=== PATIENT | female | born 1970 ===

== ENCOUNTER 2022-03-15 18:11 | Emergency (ER) | payer BC, SELFPAY ==
[2022-03-15 18:17] VITALS: BP 134/82; PULSE 91; RESP 16; TEMP 36.4; O2SAT 91; BMI 39.9
--- NOTE | 2022-03-15 19:03 | ED.NURSE ---
Compliance Investigator attempted to collected Covid [employer] test that was ordered. Pt stated she was uncomfortable with an [employer] swab collection. Compliance Investigator explained procedure to pt to provide reassurance. Before the pt could respond, pt's male visitor then stated that the pt was refusing the [employer] swab collection. Procedure again explained to pt and pt's visitor. Pt's visitor argumentative with underwriter mortgage loan, stating that pt should just be able to spit on the [employer] swab for a sample collection. Compliance Investigator explained again that there was a procedure for sample collection and the pt could not spit on the [employer] swab for collection. Compliance Investigator offered an OP swab as an alternative and explained the procedure for OP swab collection. Pt's visitor argumentative about this as well, stating pt should just be able to spit on OP swab for collection and stating that mucus all comes from the same area, you know that. Compliance Investigator explained to pt and visitor that the detox treatment they were seeking required a negative covid test for admission to the facility. Pt's visitor still stating that the pt declines the swab collection. Compliance Investigator stepped out of the room at this point as pt's visitor was continuing to escalate the conversation into an argument. notified of the situation. entered room and spoke with pt and visitor as well. explained the requirements for sample collection of covid swabs several times, and informed pt and visitor of the detox admission requiring a negative covid test. Pt and visitor still declined covid test and requested some time to consider.
--- NOTE | 2022-03-15 19:17 | ED.NURSE ---
Pt and visitor departing ER. Drying Frame Operator offered DC paperwork to pt and visitor, DC paperwork declined by both pt and visitor. Pt and visitor then departed ER.
--- NOTE | 2022-03-15 19:21 | ED.ALCOHOL ---
HPI - Alcohol General Chief Complaint: Alcohol/Intoxication Stated Complaint: Alcohol Withdrawal Time Seen by Provider: 03/15/22 18:11 Source: patient and family Mode of arrival: ambulatory Limitations: no limitations History of Present Illness HPI narrative: 51-year-old female with known history of alcoholism presents the emergency department requesting alcohol treatment. She reports that she has been through detox once before about 3 or 4 years ago in [place]. She says that she is starting to feel like she is going to withdrawal, she feels nauseated, anxious. She reports that she is currently drinking about 1 L of vodka per day. This is a rough estimate as it does tend to be sporadic and go in spurts. She has been on a drinking better for the last 14 days her partner reports. She has no history of DTs. She does report that she had a seizure once to tramadol but that she was actually not drinking at the time and had been sober for quite some time when she had that seizure has not had any other similar episodes. She is willing to go to detox today. She has been sober for 4-5 years at most in the past. 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 Eyes any recent fever illness, no cardiac or pulmonary symptoms. She did just start working with a therapist to help get to the root of her depression anxiety that covers her drinking. Last drink was about 3 hours ago. Past medical history is notable for liver and kidney dysfunction secondary to alcoholism. Socially she drinks about a L of vodka per day we estimate also some wine sporadically on does use marijuana edibles at times as well. Prescription medications none though she does report she has some [place] around for on an old shoulder fracture. He has an allergy to tramadol which caused a seizure. Related Data Allergies Allergy/AdvReac Type Severity Reaction Status Date / Time tramadol Allergy Verified 03/15/22 18:17 Review of Systems Status of ROS Reports: 10 or more systems reviewed and unremarkable except as noted in History and below [facility] Social History Smoking Status: Never smoker Do you use any of these nicotine containing products: None Second hand tobacco smoke exposure: No How often do you have a drink containing alcohol: 4 or more times a week How many standard drinks containing alcohol do you have on a typical day: 5 or 6 How often do you have six or more drinks on one occasion: Daily or almost daily AUDIT-C Alcohol total score: 10 Non-prescribed substance use: denies use service: No Exam Const: Vital Signs, click to edit/add: Vital Signs - 24 hr 03/15/22 18:17 Temperature 97.5 F L Pulse Rate [Pulse Oximeter] 91 Respiratory Rate 16 Blood Pressure [Le ft Upper Arm] 134/82 Pulse Oximetry 91 Oxygen Delivery Me thod Room Air Documenting provider has reviewed patient's vital signs: yes Common normals: no apparent distress Other: Both patient and her partner are irritable. HENMT: Common normals: normocephalic Head and scalp: normocephalic Mouth: oral and palatal mucosa normal Throat: posterior oropharynx normal Eye: Common normals: conjunctivae normal and no scleral icterus Conjunctiva: conjunctiva(e) normal Neck & C-Spine: Common normals: no lymphadenopathy Resp: Common normals: normal respiratory effort and clear to auscultation bilaterally Effort & inspection: able to speak in complete sentences Auscultation: clear to auscultation bilaterally Cardio: Common normals: regular rate, regular rhythm and peripheral pulses 2+ throughout Rate: regular rate Rhythm: regular rhythm Peripheral pulses: pulses 2+ throughout GI: Other: 2 cm hepatomegaly with moderate ascites. No obvious masses Extremity: Common normals: no pedal edema Neuro: Speech: speech normal Motor exam: no tremor noted, no asterixis and no movement abnormalities noted Psych: Other: Irritable with fair judgment. Insight seems good. Thought process logical with no psychosis. Does not seem severely intoxicated. Skin: Common normals: no rashes or lesions noted General skin exam: no rashes or lesions noted Course Vital Signs Vital signs: Initial Vital Signs Temperature 97.5 F L 03/15/22 18:17 Temperature Source Temporal Artery Scan 03/15/22 18:17 Pulse Rate 91 03/15/22 18:17 Pulse Rhythm 03/15/22 18:17 Pulse Strength 0+ Absent 03/15/22 18:17 Respiratory Rate 16 03/15/22 18:17 Blood Pressure 134/82 03/15/22 18:17 Blood Pressure Mean 99 03/15/22 18:17 Blood Pressure Position Supine 03/15/22 18:17 Pulse Oximetry 91 03/15/22 18:17 Oxygen Delivery Method 03/15/22 18:17 Vital Signs Temperature 97.5 F L 03/15/22 18:17 Pulse Rate 91 03/15/22 18:17 Respiratory Rate 16 03/15/22 18:17 Blood Pressure 134/82 03/15/22 18:17 Pulse Oximetry 91 03/15/22 18:17 Oxygen Delivery Method 03/15/22 18:17 Temperature 97.5 F L 03/15/22 18:17 Pulse Rate 91 03/15/22 18:17 Respiratory Rate 16 03/15/22 18:17 Blood Pressure 134/82 03/15/22 18:17 Pulse Oximetry 91 03/15/22 18:17 Oxygen Delivery Method 03/15/22 18:17 MDM - Alcohol MDM Narrative Medical decision making narrative: Counseled patient that she is a good candidate for detox. She is willing to go voluntarily. I counseled her that they wanted alcohol level and a COVID swab. Initially, they agreed but then stated that they would only do a COVID swab if it was a spit test, would not allow a swab in the mouth or nose. I counseled them that I am not willing to contact detox facilities until they do a COVID swab as a negative COVID swab is part of the admission criteria. They said that they would think about it and then the nurse informed me that they have left AMA. Discharge Plan Discharge Clinical Impression: Alcohol withdrawal syndrome Patient Disposition: Left Against Medical Advice Instructions: Abuse of Alcohol (DC) Stand Alone Forms: [facility] Info Instructions
[2022-03-15 19:30] LABS: Ethanol* 0.26 % (0.01-0.03)
== END 2022-03-15 19:20 | disposition left against medical advice (07) ==
PROVIDERS: Emergency Provider Family Medicine
DX: F10.229 Alcohol dependence with intoxication, unspecified (principal); F10.239 Alcohol dependence with withdrawal, unspecified; Y90.8 Blood alcohol level of 240 mg/100 ml or more
CPT/HCPCS: 36415; 82077; 87635; 99281; 99283